=== PATIENT | male | born 1950 | race Caucasian/White ===

== ENCOUNTER → 2024-04-02 09:02 | Outpatient (REF) | payer BC, SELFPAY | LOC: RAD 09:02 | PROVIDERS: ATTENDING PHYSICIAN Internal Medicine Cardiovascular Disease; FAMILY PHYSICIAN Family Medicine | DX: I71.21 Aneurysm of the ascending aorta, without rupture (principal) | CPT/HCPCS: 71275; Q9967 ==

== ENCOUNTER → 2024-08-14 10:58 | Outpatient (REF) | payer BC, SELFPAY | LOC: RAD 10:58 | PROVIDERS: ATTENDING PHYSICIAN Family Medicine; FAMILY PHYSICIAN Family Medicine; REFERRING PHYSICIAN Internal Medicine Critical Care Medicine | DX: I10 Essential (primary) hypertension (principal); E78.00 Pure hypercholesterolemia, unspecified; H40.9 Unspecified glaucoma; Z86.718 Personal history of other venous thrombosis and embolism; R05.9 Cough, unspecified | CPT/HCPCS: 71046 ==

== ENCOUNTER → 2025-01-13 10:11 | Outpatient (REF) | payer BC, SELFPAY | LOC: HWRCS 10:11 | PROVIDERS: ATTENDING PHYSICIAN Internal Medicine Cardiovascular Disease; FAMILY PHYSICIAN Family Medicine | DX: R55 Syncope and collapse (principal) | CPT/HCPCS: 93306 ==

== ENCOUNTER 2025-02-05 06:23 | Day surgery (SDC) | payer BC, SELFPAY | END 2025-02-05 11:04 | disposition home or self-care (01) | LOC: GI 06:23 | PROVIDERS: ATTENDING PHYSICIAN Internal Medicine | DX: Z12.11 Encounter for screening for malignant neoplasm of colon (principal); K57.30 Diverticulosis of large intestine without perforation or abscess without bleeding; K64.9 Unspecified hemorrhoids; D50.9 Iron deficiency anemia, unspecified; K44.9 Diaphragmatic hernia without obstruction or gangrene; K21.00 Gastro-esophageal reflux disease with esophagitis, without bleeding; D12.2 Benign neoplasm of ascending colon; K92.2 Gastrointestinal hemorrhage, unspecified; K29.50 Unspecified chronic gastritis without bleeding; Z80.0 Family history of malignant neoplasm of digestive organs; Z86.0101 Personal history of adenomatous and serrated colon polyps | CPT/HCPCS: 45380; 43239; 88305; 88342 ==

== ENCOUNTER 2025-03-01 06:25 | Day surgery (SDC) | payer BC, SELFPAY ==
[2025-02-23 11:09] LABS: Hematocrit 41.0 % (39.0-52.0); Hemoglobin 13.6 g/dL (13.0-18.0); Mean Corp Hgb Conc. 33.2 g/dL (33.0-37.0); Mean Corpuscular Volume 87.8 fL (80.0-94.0); Platelet Count 205 10^3/uL (130-400); Red Cell Dist. Width 19.4 % (11.5-14.5)
[2025-02-23 11:51] LABS: Blood Urea Nitrogen 16 mg/dl (9-20); Calcium 9.2 mg/dl (8.4-10.2); Carbon Dioxide 29 mmol/L (22-30); Chloride 102 mmol/L (98-107); Glucose 80 mg/dl (70-99); Potassium 4.9 mmol/L (3.5-5.1); Sodium 139 mmol/L (135-145); eGFR > 60.00
[2025-02-23 13:44] VITALS: BMI 30.2
[2025-03-01] VITALS (10 sets, daily range): BP systolic 132–146; BP diastolic 73–88; BMI 30.2
[2025-03-01] MEDS: TYLENOL 1000 MG PO (07:52)
[2025-03-01] MEDS: NORMOSOL-R/PLASMALYTE-A 1000 IV (07:53)
--- NOTE | 2025-03-01 09:03 | HP.FOC2 ---
Focused History & Physical
Chief Complaint
HPI:
Chief Complaint: GERD with type III paraesophageal hernia
HPI / Indication for Planned Procedure: Patient is a 74-year-old male seen in outpatient surgical evaluation with a known type III paraesophageal hernia with resultant mild GERD, frequent belching and postprandial satiety/discomfort. He also has
had multiple bouts of recurrent bronchitis. After discussions with the patient he wished to pursue operative correction of his type III paraesophageal hernia and presents today for the operative procedure.
Relevant Past Medical History: Other (History of pulmonary embolism, hypercholesterolemia, CAD, glaucoma, history of bronchitis, asthma, COPD)
Relevant Social History: Negative
Relevant Family History: Negative
Relevant Past Surgical History: Positive for (Inguinal hernia repair, cataracts, right shoulder replacement)
Review of Systems
Review of Pertinent Systems: All Systems Negative
Medication
See Medication form for detailed medications: Yes
Medication List (including Herbals & OTC):
brimonidine 0.2 %-timolol 0.5 % eye drops (Combigan) 1 drp LEFT EYE BID 12/22/15
ezetimibe 10 mg tablet (Zetia) 10 mg PO DAILY 02/23/25
famotidine 20 mg tablet 20 mg PO DAILY 02/23/25
tamsulosin 0.4 mg capsule 0.4 mg PO DAILY 02/23/25
tirzepatide 2.5 mg/0.5 mL subcutaneous pen injector (Mounjaro) 5 mg SC QWEEK 02/23/25
vitamins A,C,I-yigd-rjvlom 4,296 mcg-226 mg-90 mg capsule 1 cap PO BID 02/23/25
apixaban 5 mg tablet (Eliquis) 5 mg PO BID 03/01/25
atorvastatin 80 mg tablet 80 mg PO DAILY 03/01/25
cpqlweljwv-jfajpicndrjpv-kwpyvxue 50 mg-325 mg-40 mg tablet 1 tab PO Q6H PRN migraines 03/01/25
latanoprost 0.005 % eye drops (Xalatan) 1 drp BOTH EYES BID 03/01/25
lisinopril 40 mg tablet 40 mg PO DAILY 03/01/25
netarsudil 0.02 % eye drops (Rhopressa) 1 drp ophthalmic (eye) QPM 03/01/25
Medications Reviewed: Yes
Allergies and Reactions
Patient has Allergies: No
Noted Allergies and Reactions:
Allergy/AdvReac Type Severity Reaction Status Date / Time
No Known Allergies Allergy Verified 03/01/25 07:38
Pertinent Physical Exam
All Other Systems: Negative
Head/Neck: Normal
Lungs: Normal
Heart: Normal
Abdomen: Normal
Extremities: Normal
Neurological: Normal
Diagnosis / Assessment
74-year-old male presenting for operative correction of a symptomatic type III paraesophageal hernia
Plan / Procedure
Robotic assisted laparoscopic repair paraesophageal hernia with fundoplication/gastropexy; EGD
Anesthesia/Sedation to be done by Anesthesia Provider: Yes
--- NOTE | 2025-03-01 09:08 | W.SUR.PREOP ---
Pre-Operative Surgical Note
-
I have examined this patient prior to the performance of the scheduled procedure.
The patient's condition is unchanged from the time of the current History and
Physical and the patient is able to undergo the scheduled procedure.
--- NOTE | 2025-03-01 13:59 | W.IMMPOSTOP ---
Addendum entered and electronically signed by Leroy Linares MD 03/01/25 15:57:
#[id number]
Original Note:
Surgical Immed Post Op Note
-
Primary Surgeon: Leroy Linares MD
Assisting Surgeon: Stacy Mc PA-C
Pre-op Diagnosis: Symptomatic type III paraesophageal hernia
Post-op Diagnosis: Symptomatic type III paraesophageal hernia
Procedure Performed: Robotic assisted laparoscopic paraesophageal hernia repair with Toupet fundoplication and gastropexy. EGD
Anesthesia Type: GETA +0.25% Marcaine with epi
Specimen / Cultures: None
Estimated Blood Loss: 20 mL
Complications: None immediate
Operative Findings: Moderate-sized type III paraesophageal hernia containing the entire fundus within the paraesophageal hernia space. Hernia sac and contents completely reduced. Anterior hernia sac excised and discarded. Circumferential
esophageal mobilization to allow for tensionless intra-abdominal esophageal length of 3 cm. Pledgeted posterior crural closure with single right anterior and left anterior crural stitch as well. 60 [place] bougie utilized. Partial posterior
fundoplication with bougie in place for length of approximately 2 cm of the distal esophagus. Single left fundic gastropexy stitch to left yuri. Single posterior fundoplication gastropexy stitch to posterior crural closure. Anterior gastropexy
along greater curvature at the junction of the body to antrum to the left costal margin with 4 interrupted 0 silk stitches. No pleural injury during the dissection.
EGD demonstrated significant reflux esophagitis essentially along the entire length of the esophagus with visualized bile stasis within the esophagus. GE junction and fundoplication well-formed and widely patent. No stomach ulceration.
The assistance of Stacy Mc PA-C was required due to the complexity of the procedure. During the procedure Stacy Mc PA-C assisted with port placement, robotic instrumentation and suture material exchanges, and closure of the surgical incision
sites. I was present for the entirety of the operative procedure.
[2025-03-01] MEDS: OFIRMEV 100 IV ×2 (14:48→21:18)
[2025-03-01] MEDS: NSS 1000 IV ×2 (15:48→21:59)
--- NOTE | 2025-03-01 17:07 | PTCARENOTE ---
Pt arrived to [facility] from PACU in a bed. Abdomen with 5 lap sites and 1 poke site [employer] with glue. Pt drowsy but arousable to verbal. 96% on RA. Abdomen tender to palpation and round. DTV. NPO with no carbonation or straws. Admission questions
answered. Bed locked and in lowest position. Care ongoing.
[2025-03-01] MEDS: LOVENOX 40 MG SC (18:31)
[2025-03-01] MEDS: MYLICON 80 MG PO (19:53)
[2025-03-01] MEDS: NON-FORMULARY ITEM 1 DROP LEFT EYE (21:23)
[2025-03-01] MEDS: NON-FORMULARY ITEM 1 UNIT BOTH EYES ×2 (21:24)
[2025-03-01] MEDS: XALATAN OPHTHALMIC SOLUTION 1 DROP BOTH EYES (21:24)
[2025-03-01] MEDS: FLOMAX 0.4 MG PO (22:30)
[2025-03-01] MEDS: ZESTRIL 40 MG PO (22:30)
[2025-03-02] MEDS: OFIRMEV 100 IV ×2 (03:15→09:55)
[2025-03-02 03:27] VITALS: BP 136/84
--- NOTE | 2025-03-02 07:04 | W.PN.GS2 ---
Today's Communication / Plan
-
`
Assessment / Plan
-
Assessment: POD#1 s/p RAL PEH repair with Toupet fundoplication/gastropexy and EGD
AFVSS
doing well post op
Plan: multimodal pain control options
AM labs pending
clear liquid diet today
stop IVF if matthew PO well
OOBTC/ambulate
home meds but holding therapeutic AC for 72hrs post op
scds/lovenox/ambulation for VTEp
probable dc in next 24hrs
Subjective Data
-
Date of Service: March 02, 2025
pt seen and examined
reports some post op pain in central back and scapular areas
no nausea
voiding
pain controlled
Objective Data
-
Intake and Output
03/01/25 03/02/25 03/03/25
06:59 06:59 06:59
Intake Total 2340 / 2340
Output Total 1825 / 1825
Balance 515 / 515
Intake:
Oral fluids 240 / 240
IV fluids (Total) 2000 / 1999
Normosol 200 / 200
IV piggybacks 100 / 100
Output:
Urine, Forde 600 / 600
Urine, Voided 1225 / 1225
Vital Signs
Temp Pulse Resp BP Pulse Ox
98.4 F 81 16 136/84 96
03/02/25 03:27 03/02/25 03:27 03/02/25 03:27 03/02/25 03:27 03/02/25 03:27
Calcium 9.2 mg/dl (8.4-10.2) 02/23/25 08:34
Physical Exam
-
NAD AAOx3
ABD: soft, ND, mild TTP at incision sites
incisions with glue dressings
Patient has a forde catheter: No
[2025-03-02 07:34] LABS: Hematocrit 39.3 % (39.0-52.0); Hemoglobin 13.1 g/dL (13.0-18.0); Mean Corp Hgb Conc. 33.3 g/dL (33.0-37.0); Mean Corpuscular Volume 87.7 fL (80.0-94.0); Platelet Count 180 10^3/uL (130-400); Red Cell Dist. Width 18.8 % (11.5-14.5)
[2025-03-02 07:40] VITALS: BP 142/85
[2025-03-02] MEDS: NSS (PRESERVATIVE FREE) 10 ML IV (08:05)
[2025-03-02] MEDS: PROTONIX IV 40 MG IV (08:05)
[2025-03-02] MEDS: XALATAN OPHTHALMIC SOLUTION 1 DROP BOTH EYES (08:06)
[2025-03-02 08:07] LABS: Blood Urea Nitrogen 10 mg/dl (9-20); Calcium 8.3 mg/dl (8.4-10.2); Carbon Dioxide 26 mmol/L (22-30); Chloride 105 mmol/L (98-107); Estimated Creatinine Clearance 81 ml/min; Glucose 94 mg/dl (70-99); Potassium 4.0 mmol/L (3.5-5.1); Sodium 137 mmol/L (135-145); eGFR > 60.00
[2025-03-02 11:10] VITALS: BP 133/78
--- NOTE | 2025-03-02 11:13 | CM ---
Reviewed the chart notes and spoke with the patient and his daughter at the bedside. The patient resides with his daughter in a one story home with three steps to enter. The patient reports no DME/VN/SNF in the past. The patient confirmed his
pharmacy of choice is [facility]. Patient anticipates being discharged to home later today. Patient's daughter will provide transportation. CM continues to be available to patient/family and is monitoring medical plan for needs at discharge.
Plan: Discharge to home when medically stable.
--- NOTE | 2025-03-02 12:10 | W.PN.SURGUPD ---
Surgical Update
Surgical Update
doing quite well post op
pain controlled with tylenol
matthew clear liquids, no nausea, no dysphagia, no GERD
stable for d/c
will cover with prophylactic lovenox for next 72hrs while off therapeutic AC initially post op d/t surgical post op bleeding risk
--- NOTE | 2025-03-02 12:13 | W.DS.TRANS ---
DC Summary - Sales Officer
-
Discharge Instructions:
Sleep Apnea Risk Intermediate
Discharge Diagnosis/Procedures Robotic assisted laparoscopic repair of
paraesophageal hernia with partial posterior
fundoplication and gastropexy. EGD
Diet Other diet
Additional Diets As per provided printed post fundoplication
dietary handout; full liquid diet initial 48-
72hrs post op
Activity No strenuous activity
Additional Activity No lifting over 15 pounds for 6 weeks postop
Driving Restrictions No driving for 2 to 3 days or if using narcotics
Bathing Restrictions OK to Shower
Wound Care Glue at surgical sites typically peels off in 2
to 3 weeks
Instructions:
Stand-Alone Forms:
Changes to Home Medications: No
Discharge Medications:
DC Medications w/original date entered in [facility]
brimonidine 0.2 %-timolol 0.5 % eye drops (Combigan) 1 drp LEFT EYE BID 12/22/15
ezetimibe 10 mg tablet (Zetia) 10 mg PO DAILY 02/23/25
famotidine 20 mg tablet 20 mg PO DAILY 02/23/25
tamsulosin 0.4 mg capsule 0.4 mg PO DAILY 02/23/25
tirzepatide 2.5 mg/0.5 mL subcutaneous pen injector (Mounjaro) 5 mg SC QWEEK 02/23/25
Held on 03/02/25. Instructions: Resume on 03/22/25.
vitamins A,C,K-hrfp-gitnjn 4,296 mcg-226 mg-90 mg capsule 1 cap PO BID 02/23/25
apixaban 5 mg tablet (Eliquis) 5 mg PO BID 03/01/25
Held on 03/02/25. Instructions: Resume on 03/05/25. Resume Saturday AM
atorvastatin 80 mg tablet 80 mg PO DAILY 03/01/25
brinzolamide 1 % eye drops,suspension 1 drp BOTH EYES HS 03/01/25
ysnchiiclc-wcecoizshgwog-kotapcsg 50 mg-325 mg-40 mg tablet 1 tab PO Q6H PRN migraines 03/01/25
latanoprost 0.005 % eye drops (Xalatan) 1 drp BOTH EYES BID 03/01/25
lisinopril 40 mg tablet 40 mg PO DAILY 03/01/25
netarsudil 0.02 % eye drops (Rhopressa) 1 drp ophthalmic (eye) QPM 03/01/25
enoxaparin 40 mg/0.4 mL subcutaneous syringe (Lovenox) 40 mg (0.4 mL) SC QPM #3 syringes 03/02/25
ondansetron 4 mg disintegrating tablet 4 mg PO Q8HPRN PRN nausea/vomiting #10 tabs 03/02/25
oxycodone 5 mg tablet 5 mg PO Q4HPRN PRN breakthrough/severe pain #7 tabs 03/02/25
polyethylene glycol 3350 17 gram/dose oral powder (Miralax) 4 g PO DAILY PRN Constipation #119 grams 03/02/25
Home Medication Changes
hold eliquis 72hrs post op until saturday AM 03/05
hold mounjaro for 2 weeks post op
Pending Results: No
== END 2025-03-02 13:35 | disposition home or self-care (01) ==
LOC: SDS 06:25
PROVIDERS: ATTENDING PHYSICIAN Surgery; FAMILY PHYSICIAN Family Medicine
DX: K44.9 Diaphragmatic hernia without obstruction or gangrene (principal)
CPT/HCPCS: 43281; 36415; 80048; 85027; 86850; 86900; 86901